=== PATIENT | female | born 1955 | race Caucasian/White ===

== ENCOUNTER 2019-05-22 15:01 | Outpatient (CLI) | payer MEDICARE, MEDICAID ==
[~2019-05-22 15:01] MED LIST: FLUT16SP10; GLUC100017 PO; LOSA100T57 PO; MILK THISTLE PO; MULT-342 PO; NAPR375T PO; TIZA4CAP PO; VITA1CAP PO; VITAMIN D PO; [UNRECOGNIZED DRUG - OTHER] PO; fish oil PO; vitamin c PO
[2019-05-22 15:26] VITALS: BP 142/78
== END 2019-05-22 16:16 | disposition home or self-care (01) ==
LOC: ORTHO 15:01
PROVIDERS: ATTEND Orthopaedic Surgery
DX: S52.571D Other intraarticular fracture of lower end of right radius, subsequent encounter for closed fracture with routine healing (principal); S52.611D Displaced fracture of right ulna styloid process, subsequent encounter for closed fracture with routine healing; M85.88 Other specified disorders of bone density and structure, other site; I10 Essential (primary) hypertension; X58.XXXD Exposure to other specified factors, subsequent encounter
CPT/HCPCS: 73110; G0463

== ENCOUNTER 2019-06-21 12:06 | Outpatient (CLI) | payer MEDICARE, MEDICAID | END 2019-06-21 13:40 | disposition home or self-care (01) | LOC: ORTHO 12:06 | PROVIDERS: ATTEND Orthopaedic Surgery | DX: S52.591D Other fractures of lower end of right radius, subsequent encounter for closed fracture with routine healing (principal); M25.731 Osteophyte, right wrist; I10 Essential (primary) hypertension; X58.XXXD Exposure to other specified factors, subsequent encounter | CPT/HCPCS: 73110; G0463 ==

== ENCOUNTER 2019-07-19 11:45 | Outpatient (CLI) | payer MEDICARE, MEDICAID | END 2019-07-19 12:35 | disposition home or self-care (01) | LOC: ORTHO 11:45 | PROVIDERS: ATTEND Orthopaedic Surgery | DX: S52.591D Other fractures of lower end of right radius, subsequent encounter for closed fracture with routine healing (principal); I10 Essential (primary) hypertension; X58.XXXD Exposure to other specified factors, subsequent encounter | CPT/HCPCS: 73110; G0463 ==

== ENCOUNTER 2022-09-17 05:43 | Day surgery (SDC) | payer MEDICARE, MEDICAID ==
[2022-09-10 11:11] LABS: CLARITY,URINE CLEAR (Clear); COLOR,URINE YELLOW (Yellow); GLUCOSE, URINE NEGATIVE (Neg); KETONES,URINE NEGATIVE (Neg); LEUKOCYTE ESTERASE ,URINE NEGATIVE (Neg); NITRITES, URINE NEGATIVE (Neg); OCCULT BLOOD,URINE NEGATIVE (Neg); PROTEIN,URINE NEGATIVE (Neg); UROBILINOGEN,URINE 0.2 E.U/dL (0.2-1.0)
[2022-09-10 11:13] LABS: UA COLLECTION TYPE CLN CATCH MIDSTREAM
[2022-09-10 11:14] LABS: BASOPHILS % (AUTO) 0.5 % (0-1); EOSINOPHILS # (AUTO) 0.1 X10'3 (0-0.9); EOSINOPHILS % (AUTO) 2.4 % (0-6); LYMPHOCYTES # (AUTO) 1.8 X10'3 (1.1-4.8); MEAN CORPUSCULAR HEMOGLOBIN 29.9 PG (27.0-31.0); MEAN CORPUSCULAR HGB CONC 34.3 g/dL (33.0-36.5); MEAN CORPUSCULAR VOLUME 87.3 FL (78-98); MEAN PLATELET VOLUME 7.4 FL (7.4-10.4); MONOCYTES # (AUTO) 0.4 X10'3 (0-0.9); MONOCYTES % (AUTO) 7.7 % (2-12); NEUTROPHILS # (AUTO) 2.7 X10'3 (1.8-7.7); NEUTROPHILS % (AUTO) 54.4 % (42-75); PRE OP HEMATOCRIT 43.1 % (35.0-45.0); PRE OP HEMOGLOBIN 14.8 g/dL (12.0-16.0); PRE OP PLATELET COUNT 199 X10'3 (140-440); RED BLOOD COUNT 4.94 X10'6 (4.20-5.60); RED CELL DISTRIBUTION WIDTH 13.5 % (11.5-14.5)
[2022-09-10 11:30] LABS: ALBUMIN 4.3 G/DL (3.4-5.0); ALBUMIN/GLOBULIN RATIO 1.3 (1.1-1.5); ALKALINE PHOSPHATASE 94 IU/L (46-116); BLOOD UREA NITROGEN 17 MG/DL (7-18); BUN/CREATININE RATIO 23.3 (6.6-38.0); CHLORIDE 104 MMOL/L (99-107); CREATININE 0.73 MG/DL (0.40-0.90); PRE OP ALT 28 U/L (30-65); PRE OP ANION GAP 6 (8-16); PRE OP AST 20 U/L (10-37); PRE OP BILIRUB, TOTAL 0.4 MG/DL (0.0-1.0); PRE OP GLUCOSE 94 MG/DL (70-104); PRE OP POTASSIUM 4.7 MMOL/L (3.4-5.1); PRE OP SODIUM 140 MMOL/L (135-145); TOTAL CARBON DIOXIDE 30.3 MMOL/L (24-32); TOTAL PROTEIN 7.6 G/DL (6.4-8.2); eGFR 79 ML/MIN
[~2022-09-17] VITALS: Ht 165.1 cm; Wt 89.9 kg
[2022-09-17] VITALS (11 sets, daily range): BP systolic 139–163; BP diastolic 74–101
[~2022-09-17 05:43] MED LIST changes: -FLUT16SP10; +GUAI600T45 PO; +HYAL1POW9; +IODI30TI; -LOSA100T57 PO; +NAPR-1154 PO; -NAPR375T PO; +OMEP20CA16 PO; +RED600CA2; +SERT-434 PO; -TIZA4CAP PO; +ceFAZolin inj. 2,000 MG in dextrose 5%-water 100 ML IV ONE; +famotidine 20mg tablet PO ONE; -fish oil PO; +ringers solution, lacted 1,000 ML IV SCH
[2022-09-17] MEDS ORDERED: bacitracin 15gm ointment TP ONE (07:02)
[2022-09-17] MEDS ORDERED: BUPIVAcaine/PF 2.5mg/ml (0.25%) 10ml vial ONE (07:02)
[2022-09-17] MEDS ORDERED: fentaNYL/PF 50MCG/1 ML 2ML syringe ONE (08:53)
[2022-09-17] MEDS ORDERED: midazolam 1 mg/ML 2ml injection ONE (08:54)
[2022-09-17] MEDS ORDERED: propofol inj 20 ML IV ONE (08:58)
[2022-09-17] MEDS ORDERED: ROPIVAcaine 0.5% (5mg/ml) 30ml vial ONE (09:12)
[2022-09-17] MEDS ORDERED: dexamethasone sod phosphate 4mg/ml inj. ONE (09:15)
[2022-09-17] MEDS ORDERED: ondansetron/PF 4mg/2ml inj ONE (09:15)
[2022-09-17] MEDS ORDERED: morphine 2 MG/ML inj. syringe IV PRN (09:30)
[2022-09-17] MEDS ORDERED: proCHLORperazine 10 MG/2 ml inj IV PRN (09:30)
[2022-09-17] MEDS ORDERED: ringers solution, lacted 1,000 ML IV SCH (09:30)
[2022-09-17] MEDS ORDERED: morphine 4 MG/ML inj SYRINge IV PRN (09:30)
[2022-09-17] MEDS ORDERED: meperidine/PF 25mg/ml syringe IV PRN ×3 (09:30)
[2022-09-17] MEDS ORDERED: ondansetron/PF 4mg/2ml inj IV PRN (09:30)
[2022-09-17] MEDS ORDERED: ePHEDrine 50MG/ML INJ. ONE (10:14)
--- NOTE | 2022-09-17 10:20 | NUR ---
Received from OR via BED, accompanied by Anesthesiologist and report given by Anesthesiologist. PATIENT WAKING UP, NO S/S OF PAIN, V/S WNL, SCD ON, 20G TO RUE, RIGHT FOOT SPLINT WALKING BOOT WITH PINS TO TOES AND RAMYA WRAP DRESSING W/ 4X4 CDI
--- NOTE | 2022-09-17 11:30 | NUR ---
PATIENT A&OX4, DENIES PAIN, V/S WNL, SCD OFF, 20G TO RUE D/C, RIGHT FOOT SPLINT WALKING BOOT WITH PINS TO TOES AND RAMYA WRAP DRESSING W/ 4X4 CDI. . I HAVE REVIEWED D/C INSTRUCTIONS WITH PATIENT and they have verbalized understanding patient d/c home with all belongings and family gave transport home.
== END 2022-09-17 11:40 | disposition home or self-care (01) ==
LOC: PAS 05:43
PROVIDERS: ATTEND Podiatrist Foot & Ankle Surgery
DX: M20.5X1 Other deformities of toe(s) (acquired), right foot (principal); M20.41 Other hammer toe(s) (acquired), right foot; M24.575 Contracture, left foot; M77.41 Metatarsalgia, right foot; Z79.899 Other long term (current) drug therapy; Z98.890 Other specified postprocedural states; Z86.14 Personal history of Methicillin resistant Staphylococcus aureus infection; K21.9 Gastro-esophageal reflux disease without esophagitis; G89.18 Other acute postprocedural pain
CPT/HCPCS: 28270; 28285; 28289; 36415; 64450; 64782; 73620; 80053; 81003; 82948; 85025; 93005; A6223; C1713; J0690; J1100; J2250; J2405; J2704; J2795; J3010; J3490; J7030; J7060; J7120; Z7506; Z7508; Z7512; 76000; A4618; A6253; A6449; A7000